=== PATIENT | female | born 1965 | race Asian ===

== ENCOUNTER → 2023-06-13 | Outpatient (CLI) | payer OTHER ==
[2023-06-17 15:09] LABS: HPV 16 Negative (Negative); HPV 18 Negative (Negative); HPV OTHER HR TYPES Negative (Negative)
== END | disposition home or self-care (01) ==
LOC: LAB 16:20 → LAB SHORT 16:20
PROVIDERS: Physician Assistant
DX: Z01.419 Encounter for gynecological examination (general) (routine) without abnormal findings (principal)
CPT/HCPCS: 87624; G0145

== ENCOUNTER 2024-04-14 11:13 | Day surgery (SDC) | payer OTHER ==
[~2024-04-14] VITALS: Ht 162.6 cm; Wt 62.4 kg
[~2024-04-14 11:13] MED LIST: ATOR40TA PO; Lactated Ringer's 1,000 ML IV ONE; Prinivil10 MG PO; propofoL 50 ML IV ONE
[2024-04-14] MEDS ORDERED: Lactated Ringer's 1,000 ML IV ONE (11:56)
[2024-04-14 13:21] VITALS: BP 102/85
== END 2024-04-14 13:15 | disposition home or self-care (01) ==
LOC: ORSCSDS 11:13
PROVIDERS: Specialist
PROC: 0DJD8ZZ Inspection of Lower Intestinal Tract, Via Natural or Artificial Opening Endoscopic (ICD-10-PCS; principal; 2024-04-14 12:30)
DX: Z12.11 Encounter for screening for malignant neoplasm of colon (principal); K64.8 Other hemorrhoids; K64.4 Residual hemorrhoidal skin tags; K57.30 Diverticulosis of large intestine without perforation or abscess without bleeding; I10 Essential (primary) hypertension; E78.5 Hyperlipidemia, unspecified; Z79.899 Other long term (current) drug therapy
CPT/HCPCS: J2704; J7120